=== PATIENT | male | born 1980 | race Caucasian/White ===

== ENCOUNTER 2018-12-16 16:12 | Inpatient (IN) | payer OTHER ==
[2018-12-16] MEDS ORDERED: diphenhydrAMINE 50 MG/ML 1 ML VIAL IM STA (16:37)
[2018-12-16] MEDS ORDERED: HALOPERIDOL LACTATE 5 MG/ML 1 ML VIAL IM STA (16:37)
[2018-12-16] MEDS ORDERED: LORazepam 2 MG/ML INJ IM STA (16:37)
[2018-12-16] MEDS ORDERED: DIPH,PERTUS(ACELL)TETVAC-LF 0.5 ML VIAL IM ONE (16:42)
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
[2018-12-16 18:06] LABS: Basophils # (A) 0.1 k/uL (0-0.2); Basophils % (A) 1 %; Eosinophils # (A) 0.3 k/uL (0-0.7); Eosinophils % (A) 3 %; HCT 45.4 % (39.0-53.0); HGB 14.6 gm/dL (13.0-17.5); Lymphocytes # (A) 1.5 k/uL (1.0-4.8); Lymphocytes % (A) 16 %; MCH 28.9 pg (25.0-35.0); MCHC 32.3 g/dL (31.0-37.0); MCV 89.5 fL (80.0-100.0); Mean Platelet Volume 6.2; Monocytes # (A) 0.7 k/uL (0-1.0); Monocytes % (A) 7 %; Neutrophils # (A) 6.5 k/uL (1.3-7.7); Neutrophils % (A) 72 %; Platelet Count 301 k/uL (150-450); RBC 5.07 m/uL (4.30-5.90); RDW 13.7 % (11.5-15.5); WBC 9.1 k/uL (3.8-10.6)
[2018-12-16 18:14] LABS: Acetaminophen <10.0 ug/mL; Alcohol <10 mg/dL; Anion Gap 6 mmol/L; Blood Urea Nitrogen 9 mg/dL (9-20); Calcium 9.7 mg/dL (8.4-10.2); Carbon Dioxide 27 mmol/L (22-30); Chloride 107 mmol/L (98-107); Glucose 97 mg/dL (74-99); Potassium 3.7 mmol/L (3.5-5.1); Salicylate <1.0 mg/dL; Sodium 140 mmol/L (137-145)
--- NOTE | 2018-12-16 18:42 | XR ---
EXAMINATION TYPE: XR hand complete bilateral DATE OF EXAM: 12/16/2018 CLINICAL HISTORY: Contusion injury with pain. TECHNIQUE: Frontal, lateral and oblique images of the bilateral hands are obtained. COMPARISON: None. FINDINGS: There is no acute fracture/dislocation evident in either hand. The joint spaces in the terra ateral hands appear within normal limits. The overlying soft tissue appears unremarkable bilaterally . IMPRESSION: There is no acute fracture or dislocation in either hand.
[2018-12-17] MEDS ORDERED: MAG HYDROX/AL HYDROX/SIMETH 30 ML CUP PO PRN (00:09)
[2018-12-17] MEDS ORDERED: ACETAMINOPHEN TAB 325 MG TAB PO PRN (00:09)
[2018-12-17] MEDS ORDERED: ZIPRASIDONE 20 MG VIAL IM PRN (00:09)
[2018-12-17] MEDS ORDERED: MAGNESIUM HYDROXIDE 2,400 MG/10 ML CUP PO PRN (00:09)
[2018-12-17] MEDS: GABAPENTIN 300 MG CAP PO SCH ×2 (00:34→07:58)
[2018-12-17] MEDS: LORazepam 1 MG TAB PO PRN ×2 (00:34→15:25)
--- NOTE | 2018-12-17 07:08 | P.MDCNMH ---
History of Present Illness H&P Date: 12/17/18 Chief Complaint: medical evaluation 38-year-old male with no significant past medical history. Patient was brought him by police due to violent behavior. Patient was calm during the interview and cooperative, he denied any suicidal or homicidal ideation reported history of major depression and social anxiety. Patient denies any medical complaints or medical history at this point he denies any chest pain or trouble breathing denies any coughing shortness of breath fevers or chills denies any abdominal pain. Reviewing medical records it seems like his has petitioned the patient for aggressive behavior Review of Systems s Pertinent positives as noted in HPI. All other systems were reviewed and are negative Past Medical History Past Medical History: No Reported History History of Any Multi-Drug Resistant Organisms: None Reported Past Surgical History: No Surgical Hx Reported Past Psychological History: No Psychological Hx Reported Smoking Status: Unknown if ever smoked Past Alcohol Use History: None Reported Past Drug Use History: None Reported Medications and Allergies Home Medications Medication Instructions Recorded Confirmed Type Gabapentin [Neurontin] 300 mg PO TID PRN 12/16/18 12/16/18 History Sertraline [Zoloft] 100 mg PO DAILY 12/16/18 12/16/18 History Allergies Allergy/AdvReac Type Severity Reaction Status Date / Time No Known Allergies Allergy Verified 12/16/18 17:58 Physical Exam Vitals: Vital Signs Temp Pulse Pulse Resp BP BP Pulse Ox 12/17/18 00:05 98.2 F 71 18 100/59 12/16/18 17:26 73 14 113/71 95 Intake and Output 12/16/18 12/17/18 12/17/18 22:59 06:59 14:59 Other: Weight 77.111 kg Constitutional: No acute distress, conversant, pleasant Eyes: Anicteric sclerae, moist conjunctiva, no lid-lag Pupils equal round reactive to light ENMT: NC/AT Oropharynx clear, no erythema, exudates Neck: Supple, FROM, no masses, or JVD No carotid bruits No thyromegaly Lungs: Clear to auscultation Clear to percussion Normal respiratory effort, no accessory muscle use Cardiovascular: Heart regular in rate and rhythm, No murmurs, gallops, or rubs No peripheral edema Abdominal: Soft Nontender, no guarding, rebound or rigidity Abdomen moving with respiration Normoactive bowel sounds No hepatomegaly, No splenomegaly No palpable mass No abdominal wall hernia noted Skin: Normal temperature, tone, texture, turgor No induration No subcutaneous nodules No rash, lesions No ulcers Extremities: No digital cyanosis No clubbing Pedal pulses intact and symmetrical Radial pulses intact and symmetrical No calf tenderness Psychiatric: Alert and oriented to person, place and time Avoiding eye contact Poor judgment Neuro Muscles Strength 5/5 in all 4 extremities Sensation to light touch grossly present throughout Cranial nerves II-XII grossly intact No focal sensory deficits Lymphatics: no palpable cervical or supraclavicular , or inguinal lymph nodes Cranial Nerve Examination - Cranial Nerves Cranial Nerve II- Optic: Intact Cranial Nerve III- Oculomotor: Intact Cranial Nerve IV- Trochlear: Intact Cranial Nerve V- Trigeminal: Intact Cranial Nerve - Abducens: Intact Cranial Nerve VII- Facial: Intact Cranial Nerve VIII- Auditory: Intact Cranial Nerve IX- Glossopharyngeal: Intact Cranial Nerve X- Vagus: Intact Cranial Nerve XI- Accessory: Intact Cranial Nerve XII- Hypoglossal: Intact Results CBC & Chem 7: 12/16/18 17:47 12/16/18 17:47 Assessment and Plan Assessment: 38-year-old male with no significant past medical history except for depression brought in due to violent behavior currently denies any medical complaints or concerns Plan: Her depression Social anxiety Violent behavior Management per psych Patient denies any smoking drinking or drug of abuse DVT prophylaxis patient is ambulatory low risk Thank you for allowing us to participate in the care of this patient. We will follow peripherally. Do not hesitate to contact us with questions. Someone can be reached from the [facility] hospitalist group at all hours of the day at [phone].
[2018-12-17] MEDS: NICOTINE 14MG/24HR PATCH TRANSDERM SCH (07:58)
[2018-12-17] MEDS: SERTRALINE 100 MG TAB PO SCH (07:58)
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
[2018-12-17] MEDS: DIVALPROEX ER 500 MG TAB.ER.24H PO SCH (20:10)
[2018-12-18] MEDS ORDERED: traZODone HCL 50 MG TAB PO PRN (08:48)
--- NOTE | 2018-12-18 08:53 | P.PN ---
Progress Note - Text Interval history: The patient is found in the hallway he follows me to an interview room. The patient explains his frustrations and that he was admitted to the hospital. He states that this is unnecessary. We reviewed the conversation we had yesterday including his opinion that he had anger control issues. We discussed trying to balance his mood with the Depakote. He states he would like to withdrawal his voluntary status and he was informed as to how he would do so. At that point the patient got up and left the room. Prior to his departure he discussed having some difficulty sleeping last night. He states he has used trazodone in the past and we will try that again if needed for insomnia. Mental status exam: The patient is a male he stressors unclothing hygiene grooming adequate. Speech is fluent spontaneous. He appears more frustrated today. He is reporting no thoughts of harming himself or others. He lacks insight into the reason he was admitted to the mental health unit area he is reporting no auditory or visual hallucinations he reports no specific delusions. He frequent he moves while seated in the chair. He appeared more irritable as the session progressed and ultimately he left the office out of anger. Plan: The patient will continue on the Depakote as prescribed. Continue the Zoloft. Trazodone will be added at bedtime as needed for insomnia. We will monitor him for safety and encourage participation in the milieu. Vital signs reviewed. He requires continued hospitalization for further assessment and treatment. He intends on withdrawn his voluntary status as of this morning.
[2018-12-18] MEDS: NICOTINE 14MG/24HR PATCH TRANSDERM SCH (09:13)
[2018-12-18] MEDS: SERTRALINE 100 MG TAB PO SCH (09:13)
[2018-12-18] MEDS: DIVALPROEX ER 500 MG TAB.ER.24H PO SCH (20:46)
[2018-12-18] MEDS: LORazepam 1 MG TAB PO PRN (20:47)
[2018-12-19] MEDS: NICOTINE 14MG/24HR PATCH TRANSDERM SCH (08:27)
[2018-12-19] MEDS: SERTRALINE 100 MG TAB PO SCH (08:27)
[2018-12-19 09:33] LABS: ALT 29 U/L (21-72); AST 30 U/L (17-59); Alkaline Phosphatase 78 U/L (38-126); Bilirubin, Delta 0.3 mg/dL (0.0-0.2); Bilirubin,Unconjugated 1.9 mg/dL (0.0-1.1); Blood Urea Nitrogen 13 mg/dL (9-20); Calcium 10.5 mg/dL (8.4-10.2); Carbon Dioxide 27 mmol/L (22-30); Cholesterol 231 mg/dL (<200); Glucose 103 mg/dL (74-99); HDL Cholesterol 49 mg/dL (40-60); LDL Cholesterol,Calculated 160 mg/dL (0-99); Total Bilirubin 2.2 mg/dL (0.2-1.3); Total Protein 8.7 g/dL (6.3-8.2); Triglycerides 111 mg/dL (<150)
[2018-12-19 10:27] LABS: Anion Gap 10 mmol/L; Chloride 105 mmol/L (98-107); Potassium 4.2 mmol/L (3.5-5.1); Sodium 142 mmol/L (137-145)
--- NOTE | 2018-12-19 13:31 | P.PN ---
Progress Note - Text Interval history: The patient is found in his room he follows me to an interview room. He indicates his mood is okay. He describes having some difficulty with sleep at night and thinks it may be due to the absence of been Neurontin. He wonders if the Depakote could be keeping him awake and asked that we give it to him earlier in the day. He has been attending groups he is demonstrated no agitated behavior. He will be participating in a support meeting today with his . Mental status exam: The patient is alert he follows me to an interview room. He remains seated in the chair calmly. He reports his mood is good. Affect is constricted. He denies having any suicidal or homicidal ideation intent or plan. He is reporting no auditory or visual hallucinations or any specific delusions. He demonstrates no verbal or physical aggressiveness. Insight and judgment limited. He demonstrates no tangential thinking loose associations or flight of ideas. Plan: The patient will restart Neurontin 300 mg twice daily we will move his Depakote to an afternoon dose. He will participate in a support meeting involving his this afternoon we will await the outcome of that meeting. He is encouraged to participate in the milieu we will consider discharging him tomorrow if he appears clinically stable.
[2018-12-19] MEDS: DIVALPROEX ER 500 MG TAB.ER.24H PO SCH (14:58)
[2018-12-19] MEDS: GABAPENTIN 300 MG CAP PO SCH ×2 (14:58→21:34)
[2018-12-19 16:41] LABS: Hemoglobin A1C 4.9 % (4.0-6.0)
[2018-12-20 06:54] VITALS: BP 116/73; PULSE 64; RESP 18; TEMP 97.7
[2018-12-20] MEDS: DIVALPROEX ER 500 MG TAB.ER.24H PO SCH (08:11)
[2018-12-20] MEDS: SERTRALINE 100 MG TAB PO SCH (08:11)
[2018-12-20] MEDS: GABAPENTIN 300 MG CAP PO SCH (08:11)
[2018-12-20] MEDS: NICOTINE 14MG/24HR PATCH TRANSDERM SCH (08:11)
--- NOTE | 2018-12-20 11:35 | P.DS ---
Providers Date of admission: 12/16/18 23:14 Expected date of discharge: 12/20/18 Attending physician: Henok Milner DO Consults: 12/17/18 00:09 Consult Physician Routine Consulting Provider: Candido Michel Consult Reason/Comments: H&P and medical Do you want consulting provider notified?: Yes Primary care physician: Stated None - Discharge Diagnosis(es) (1) Depression Current Visit: Yes Status: Acute Priority: High (2) Cannabis use disorder, mild, abuse Current Visit: Yes Status: Acute Priority: Medium (3) Anxiety Current Visit: Yes Status: Acute Priority: Medium Hospital Course: Brief summary of admission note: This patient is a 38-year-old male who was admitted to the mental health unit on a pickup order. The patient was petition by his stating that he had become extremely angry and demonstrated aggressive violent behavior. He had broken a glass door causing several lacerations to his hand. His family had a concern for his safety and petitioned him to the hospital. For full details please refer to my psychiatric evaluation dated 12/17/2018. Summary of hospital course: The patient was admitted to the mental health unit he did sign in voluntarily. We reviewed his presenting symptoms and treatment options. We continued him on his Zoloft. We started Depakote ER 1000 mg at bedtime. His Neurontin was restarted. The patient did attend groups he was directable and for the most part cooperative. He reported a progressive improvement of symptoms while here. He participated in a support meeting involving his family yesterday and that was productive. He is able to return home. He states that he feels the Depakote may help with his anger reactions and he describes other future oriented thinking. He is amenable to following up with outpatient mental health services. He was seen by internal medicine for routine history and physical exam. Social work met with the patient several times to complete a psychosocial assessment and for discharge planning purposes. Mental status exam: The patient is an alert male. He is presenting with adequate hygiene grooming. He does have frontal balding. He is dressed in his own clothing. Eye contact is appropriate speech is fluent spontaneous nonpressured. He maintains a constricted affect. He denies having any suicidal or homicidal ideation intent or plan. He is reporting no auditory or visual hallucinations or any specific delusions. There is no observed evidence of psychosis. He demonstrates no tangential thinking loose associations or flight of ideas. He does not appear hypomanic or manic. Insight and judgment have improved. He is oriented to person place and date. He spontaneously describes future oriented thoughts. 1. Depression unspecified, rule out bipolar depression, rule out mood symptoms secondary to history of head injuries, cannabis use disorder, anxiety unspecified 2. Antisocial personality disorder traits 3. Reported history of head injuries 3-4 of which included loss of consciousness Plan: The patient will be discharged mental health unit today to return home with his family. He will continue on Zoloft 100 mg daily Depakote ER 1000 mg at bedtime Neurontin 300 mg twice daily. Social work will arrange his outpatient mental health follow-up. The patient's encouraged to abstain from any use of alcohol marijuana or other substances as they may elevate his safety risk. He does not believe he needs inpatient chemical dependency treatment to abstain from substance use. At this time there is no imminent safety risk he is appropriate for transition outpatient care. He is instructed to return to the hospital for any acute safety concerns. Patient Condition at Discharge: Stable Plan - Discharge Summary New Discharge Prescriptions: New Divalproex ER [Depakote ER] 1,000 mg PO DAILY #60 tab.er.24h Nicotine 14Mg/24Hr Patch [Habitrol] 1 patch TRANSDERM DAILY #12 patch Gabapentin [Neurontin] 300 mg PO BID #60 cap Continue Sertraline [Zoloft] 100 mg PO DAILY #30 tab Discontinued Gabapentin [Neurontin] 300 mg PO TID PRN PRN Reason: Pain Discharge Medication List Divalproex ER [Depakote ER] 1,000 mg PO DAILY #60 tab.er.24h 12/20/18 [Rx] Gabapentin [Neurontin] 300 mg PO BID #60 cap 12/20/18 [Rx] Nicotine 14Mg/24Hr Patch [Habitrol] 1 patch TRANSDERM DAILY #12 patch 12/20/18 [Rx] Sertraline [Zoloft] 100 mg PO DAILY #30 tab 12/20/18 [Rx] Follow up Appointment(s)/Referral(s): None,Stated [Primary Care Provider] - 1-2 days Patient Instructions/Handouts: Depression (DC), Suicide Prevention (DC) Activity/Diet/Wound Care/Special Instructions: Activity and Diet as tolerated. Avoid the use of street drugs and alcohol. Take all medications as prescribed, when you are in need of refills contact your medical doctor or psychiatrist. Please go to all scheduled outpatient appointments for aftercare treatment. If symptoms return or worsen you can call the crisis line @ and/or return to the nearest emergency room for evaluation.
== END 2018-12-20 12:54 | disposition home or self-care (01) | DRG 881 ==
LOC: EC 16:12 → 3MHU 23:14
PROVIDERS: ADMIT Psychiatry & Neurology Psychiatry; ATTEND Psychiatry & Neurology Psychiatry
PROC: 3E0234Z Introduction of Serum, Toxoid and Vaccine into Muscle, Percutaneous Approach (ICD-10-PCS; principal; 2018-12-16)
DX: F32.9 Major depressive disorder, single episode, unspecified (principal); R45.851 Suicidal ideations; F12.10 Cannabis abuse, uncomplicated; F41.1 Generalized anxiety disorder; F40.10 Social phobia, unspecified; F60.2 Antisocial personality disorder; S60.511A Abrasion of right hand, initial encounter; S60.512A Abrasion of left hand, initial encounter; F10.21 Alcohol dependence, in remission; R45.6 Violent behavior; Z79.899 Other long term (current) drug therapy; Z23 Encounter for immunization; Z91.5 Personal history of self-harm; Z62.810 Personal history of physical and sexual abuse in childhood; Z87.820 Personal history of traumatic brain injury; Z81.1 Family history of alcohol abuse and dependence; X78.0XXA Intentional self-harm by sharp glass, initial encounter
CPT/HCPCS: 36415; 80048; 80053; 80061; 80320; 82248; 83036; 83520; 84443; 85025; 90471; 90715; 96372; 99285

== ENCOUNTER 2019-02-03 21:46 | Emergency (ER) | payer OTHER ==
[2019-02-03 21:57] VITALS: TEMP 98.1
--- NOTE | 2019-02-03 22:23 | ED ---
General Adult HPI - General Source: patient, RN notes reviewed, old records reviewed Mode of arrival: ambulatory Limitations: no limitations <Oliver Martinez - Last Filed: 02/04/19 06:50> <Prince Hall - Last Filed: 02/04/19 09:19> - General Chief complaint: Psychiatric Symptoms Stated complaint: Mental Health Time Seen by Provider: 02/03/19 21:59 - History of Present Illness Initial comments: 38-year-old male presents for "ordered psychiatric evaluation. Patient was previously in [facility] psychiatric facility, he had an incident which he does not completely recall, possible suicidal attempt. Ultimately patient ended up in a local longterm, he was released today and is presenting to the emergency d epartment for "ordered psychiatric evaluation. He denies suicidal or homicidal ideation at time of my evaluation. He has previous history of psychiatric illness including depression, psychosis, anxiety. No physical complaints. (Oliver Martinez) - Related Data Previous Rx's Medication Instructions Recorded Divalproex ER [Depakote ER] 1,000 mg PO DAILY #60 tab.er.24h 12/20/18 Gabapentin [Neurontin] 300 mg PO BID #60 cap 12/20/18 Sertraline [Zoloft] 100 mg PO DAILY #30 tab 12/20/18 Allergies Allergy/AdvReac Type Severity Reaction Status Date / Time No Known Allergies Allergy Verified 02/03/19 22:20 Review of Systems ROS Other: All systems not noted in ROS Statement are negative. <Oliver Martinez - Last Filed: 02/04/19 06:50> ROS Other: All systems not noted in ROS Statement are negative. <Prince Hall - Last Filed: 02/04/19 09:19> ROS Statement: Those systems with pertinent positive or pertinent negative responses have been documented in the HPI. Past Medical History Past Medical History: No Reported History History of Any Multi-Drug Resistant Organisms: None Reported Past Surgical History: No Surgical Hx Reported Past Psychological History: Anxiety, Depression Smoking Status: Never smoker Past Alcohol Use History: None Reported Past Drug Use History: None Reported <Oliver Martinez - Last Filed: 02/04/19 06:50> General Exam Limitations: no limitations General appearance: alert, in no apparent distress Head exam: Present: atraumatic, normocephalic Eye exam: Present: normal appearance, PERRL ENT exam: Present: normal exam Neck exam: Present: normal inspection. Absent: tenderness Respiratory exam: Present: normal lung sounds bilaterally. Absent: respiratory distress, wheezes Cardiovascular Exam: Present: regular rate, normal rhythm GI/Abdominal exam: Present: soft. Absent: distended, tenderness Neurological exam: Present: alert, oriented X3, CN II-XII intact. Absent: motor sensory deficit Psychiatric exam: Present: flat affect. Absent: suicidal ideation Skin exam: Present: warm, dry, intact. Absent: cyanosis, diaphoretic <Oliver Martinez - Last Filed: 02/04/19 06:50> Course <Oliver Martinez - Last Filed: 02/04/19 06:50> Vital Signs 02/03/19 02/03/19 02/04/19 21:50 23:27 06:22 Temperature 98.1 F Pulse Rate 77 70 Respiratory 18 16 16 Rate Blood Pressure 124/84 108/68 O2 Sat by Pulse 99 Oximetry - Reevaluation(s) Reevaluation #1: 02/04/19 0700 Patient psychiatric evaluation and disposition, care is signed out at shift change to Dr. Hall (Oliver Martinez) Medical Decision Making <Prince Hall - Last Filed: 02/04/19 09:19> - Medical Decision Making Patient was vital by EPS. He discussed patient case with [facility] who arranged outpatient management of psychiatric symptoms. Patient reevaluated found with stable medical condition. Return parameters were discussed. Patient understandable and agreeable to disposition. (Prince Hall) - Lab Data Lab Results 02/03/19 Range/Units 22:50 Urine Opiates Screen Not Detected (NotDetected) Ur Oxycodone Screen Not Detected (NotDetected) Urine Methadone Screen Not Detected (NotDetected) Ur Propoxyphene Screen Not Detected (NotDetected) Ur Barbiturates Screen Not Detected (NotDetected) U Tricyclic Antidepress Not Detected (NotDetected) Ur Phencyclidine Scrn Not Detected (NotDetected) Ur Amphetamines Screen Not Detected (NotDetected) U Methamphetamines Scrn Not Detected (NotDetected) U Benzodiazepines Scrn Not Detected (NotDetected) Urine Cocaine Screen Not Detected (NotDetected) U Marijuana (THC) Screen Detected H (NotDetected) Disposition <Oliver Martinez - Last Filed: 02/04/19 06:50> Is patient prescribed a controlled substance at d/c from ED?: No Time of Disposition: 09:19 <Prince Hall - Last Filed: 02/04/19 09:19> Clinical Impression: Acute psychosis Disposition: HOME SELF-CARE Condition: Good Instructions (If sedation given, give patient instructions): Psychotic Disorder (ED) Referrals: None,Stated [Primary Care Provider] - 1-2 days
[2019-02-03 23:55] LABS: Amphetamine Screen,Urine Not Detected (NotDetected); Barbiturate Screen,Urine Not Detected (NotDetected); Benzodiazepines Screen,Urine Not Detected (NotDetected); Cocaine Screen,Urine Not Detected (NotDetected); Methadone Screen, Urine Not Detected (NotDetected); Opiate Screen,Urine Not Detected (NotDetected); Oxycodone Screen, Urine Not Detected (NotDetected); Phencyclidine Screen,Urine Not Detected (NotDetected); Tricyclic Antidepressant,Urine Not Detected (NotDetected); Urn Cannabinoid Scrn Detected (NotDetected)
[2019-02-04 09:44] VITALS: BP 109/73; PULSE 68; RESP 18
== END 2019-02-04 09:38 | disposition home or self-care (01) ==
LOC: EC 21:46
DX: F23 Brief psychotic disorder (principal); Z86.59 Personal history of other mental and behavioral disorders
CPT/HCPCS: 80306; 99284

== ENCOUNTER 2019-02-14 02:28 | Emergency (ER) | payer MEDICAID ==
--- NOTE | 2019-02-14 02:50 | ED ---
Psych HPI - General Source: patient, RN notes reviewed, old records reviewed Mode of arrival: ambulatory <Marie Townsendily - Last Filed: 02/14/19 02:54> <Rubin Elizabeth - Last Filed: 02/14/19 08:44> - General Chief Complaint: Psychiatric Symptoms Stated Complaint: Mental Health Time Seen by Provider: 02/14/19 02:49 - History of Present Illness Initial Comments: Patient is a 38-year-old male who presents today for evaluation for depression and suicidal thoughts. He denies any specific intent. He shouldn't reports that he feels depressed and suicidal after getting an argument with his vinay. He was recently seen in the hospital on February 03 for similar complaints. Patient was previously a at [facility]. Admittedly denies homicidal ideation at this time. Patient reports he was [facility]. Currently on house arrest with tether. (Jeanne Townsend) - Related Data Home Medications Medication Instructions Recorded Confirmed Divalproex ER [Depakote ER] 500 mg PO BID 02/14/19 02/14/19 Previous Rx's Medication Instructions Recorded Sertraline [Zoloft] 100 mg PO DAILY #30 tab 12/20/18 Allergies Allergy/AdvReac Type Severity Reaction Status Date / Time No Known Allergies Allergy Verified 02/14/19 07:38 Review of Systems ROS Other: All systems not noted in ROS Statement are negative. <KristianMarieJeanne - Last Filed: 02/14/19 02:54> ROS Other: All systems not noted in ROS Statement are negative. <Rubin Elizabeth - Last Filed: 02/14/19 08:44> ROS Statement: Those systems with pertinent positive or pertinent negative responses have been documented in the HPI. Past Medical History Past Medical History: No Reported History History of Any Multi-Drug Resistant Organisms: None Reported Past Surgical History: No Surgical Hx Reported Past Psychological History: Anxiety, Depression, Schizophrenia Smoking Status: Never smoker Past Alcohol Use History: None Reported Past Drug Use History: None Reported <Jeanne Townsend - Last Filed: 02/14/19 02:54> General Exam Limitations: no limitations General appearance: alert, in no apparent distress Head exam: Present: atraumatic, normocephalic, normal inspection Eye exam: Present: normal appearance, PERRL, EOMI. Absent: scleral icterus, conjunctival injection, periorbital swelling ENT exam: Present: normal exam, mucous membranes moist Neck exam: Present: normal inspection. Absent: tenderness, meningismus, lymphadenopathy Respiratory exam: Present: normal lung sounds bilaterally. Absent: respiratory distress, wheezes, rales, rhonchi, stridor Cardiovascular Exam: Present: regular rate, normal rhythm, normal heart sounds. Absent: systolic murmur, diastolic murmur, rubs, gallop, clicks GI/Abdominal exam: Present: soft, normal bowel sounds. Absent: distended, tenderness, guarding, rebound, rigid Extremities exam: Present: normal inspection, full ROM, normal capillary refill. Absent: tenderness, pedal edema, joint swelling, calf tenderness Back exam: Present: normal inspection Neurological exam: Present: alert, oriented X3, CN II-XII intact Psychiatric exam: Present: depressed, agitated. Absent: normal affect, normal mood Skin exam: Present: warm, dry, intact, normal color. Absent: rash <Jeanne Townsend - Last Filed: 02/14/19 02:54> - General Exam Comments Initial Comments: 38-year-old male. No distress. (Jeanne Townsend) Course Vital Signs 02/14/19 02:42 Temperature 98.1 F Pulse Rate 91 Respiratory 18 Rate Blood Pressure 125/82 O2 Sat by Pulse 100 Oximetry Disposition <Jeanne Townsend - Last Filed: 02/14/19 02:54> Is patient prescribed a controlled substance at d/c from ED?: No <Rubin Elizabeth - Last Filed: 02/14/19 08:44> Clinical Impression: Depression Disposition: HOME SELF-CARE Condition: Fair Instructions (If sedation given, give patient instructions): Depression (ED) Referrals: None,Stated [Primary Care Provider] - 1-2 days
[2019-02-14 08:50] VITALS: BP 136/68; PULSE 83; RESP 17; TEMP 98.2
== END 2019-02-14 08:50 | disposition home or self-care (01) ==
LOC: EC 02:28
DX: F32.9 Major depressive disorder, single episode, unspecified (principal); R45.851 Suicidal ideations; Z79.899 Other long term (current) drug therapy
CPT/HCPCS: 82075; 99285

== ENCOUNTER → 2019-02-24 | Outpatient (CLI) | payer OTHER ==
[2019-02-24 12:02] LABS: T4, Free (Free Thyroxine) 0.9 ng/dL (0.80-1.80)
[2019-02-24 12:23] LABS: Valproic Acid (Depakene) 25.9 ug/mL (50.0-100.0)
[2019-02-24 12:44] LABS: Lithium 0.4 mmol/L (1.0-1.2)
[2019-02-24 13:13] LABS: Hemoglobin A1C 5.2 % (4.0-6.0)
== END ==
LOC: LABWHC1 06:41
PROVIDERS: ATTEND Psychiatry & Neurology Psychiatry
DX: Z51.81 Encounter for therapeutic drug level monitoring (principal); Z79.899 Other long term (current) drug therapy
CPT/HCPCS: 36415; 80061; 80164; 80178; 82565; 82947; 83036; 84439; 84443; 84520

== ENCOUNTER → 2019-05-24 | Outpatient (CLI) | payer OTHER ==
[2019-05-24 16:42] LABS: Lithium 0.3 mmol/L (0.5-1.2)
== END | disposition home or self-care (01) ==
LOC: LABWHC1 09:34
PROVIDERS: ATTEND Psychiatry & Neurology Psychiatry
DX: Z51.81 Encounter for therapeutic drug level monitoring (principal); Z79.899 Other long term (current) drug therapy
CPT/HCPCS: 36415; 80164; 80178